=== PATIENT | male | born 1990 | race Caucasian/White ===

== ENCOUNTER 2018-03-24 08:36 | Emergency (ER) | payer MEDICAID ==
[~2018-03-24] VITALS: Ht 172.7 cm; Wt 190.5 kg
[2018-03-24 08:40] VITALS: Ht 172.7 cm; Wt 190.5 kg
[2018-03-24 10:21] VITALS: BP 149/101
== END 2018-03-24 10:20 | disposition home or self-care (01) ==
LOC: ED 08:36
DX: R05 Cough (principal); R07.89 Other chest pain; R21 Rash and other nonspecific skin eruption; L03.90 Cellulitis, unspecified
CPT/HCPCS: J7512; J7613; J7644